=== PATIENT | female | born 1945 | race Caucasian/White ===

== ENCOUNTER 2016-07-18 09:57 | Emergency (ER) | payer MEDICARE, OTHER ==
--- NOTE | 2016-07-18 10:56 | EDM.PDOC ---
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 felt lightheaded did not fully pass out was able to guide herself into a chair is here for further evaluation at this time she feels back to herself denies any chest pain or shortness of breath - Related Data Allergies/ADRs: Allergies Allergy/AdvReac Type Severity Reaction Status Date / Time No Known Allergies Allergy Verified 07/18/16 10:12 Home Meds: Home Meds NK [No Known Home Meds] 07/18/16 [History] Past Medical History HEENT History: Reports: Impaired vision Genitourinary History: Reports: Other (see below) Other Genitourinary History: frequency at times CHARTER REPRESENTATIVE History: Reports: , Spontaneous - Infectious Disease History Infectious Disease History: Reports: Chicken pox Social & Family History - Tobacco Use Smoking Status *Q: Former Smoker Years of Tobacco use: 30 Packs/Tins Daily: 0.5 Used Tobacco, but Quit: Yes Month Tobacco Last Used: October Second Hand Smoke Exposure: No - Caffeine Use Caffeine Use: Reports: Coffee, Tea - Alcohol Use Days Per Week of Alcohol Use: 2 Number of Drinks Per Day: 1 Total Drinks Per Week: 2 - Recreational Drug Use Recreational Drug Use: No ED ROS GENERAL - Review of Systems Review Of Systems: See Below Constitutional: Reports: no symptoms Respiratory: Reports: no symptoms Cardiovascular: Reports: Syncope GI/Abdominal: Reports: No symptoms : Reports: no symptoms Neurological: Reports: syncope - Physical Exam Exam: See Below Text/Narrative:: General: female, not in any distress, alert and oriented x3 HEENT: head is atraumatic normocephalic, eyes pupils equal round reactive to light and accommodation sclera clear no conjunctivitis appreciated. Ears tympanic membranes clear and garcia landmarks and light reflex are present bilaterally canals are clear. Nose no septal deviation, nares are clear, no blood present. Mouth mucosa is moist and pink no erythema or exudate noted in soft palate, tongue is midline uvula is midline, dentures in place. Neck: Supple no thyromegaly no tracheal deviation. Nodes: Cervical nodes subclavicular nodes nontender no palpable lymphadenopathy noted. Lungs: clear to auscultation bilaterally with symmetrical respirations, no adventitious noise appreciated. CV: Regular rate and rhythm S1 and S2 appreciated no murmurs rubs or gallops noted. Abdomen: Soft, nontender, no palpable masses or organomegaly appreciated, no distention no guarding bowel sounds are present, . Neuro: Cranial nerves II through XII grossly intact Course - Vital Signs Last Recorded V/S: Last Vital Signs Temp 97.2 F 07/18/16 10:11 Pulse 76 07/18/16 11:01 Resp 14 07/18/16 11:01 BP 136/63 07/18/16 11:01 Pulse Ox 95 07/18/16 11:01 - Orders/Labs/Meds Orders: Active Orders 24 hr Category Date Time Status EKG Documentation Completion [RC] ASDIRECTED Care 07/18/16 10:51 Active EKG 12 Lead [EK] Stat Ther 07/18/16 10:51 Ordered Departure - Departure Time of Disposition: 11:46 Disposition: Home, Self-Care 01 Condition: good Clinical Impression: Near syncope Forms: ED Department Discharge Additional Instructions: Please followup with your primary care provider in 3-5 days if not better, please call return to the emergency department with worsening of symptoms. - My Orders Last 24 Hours: My Active Orders 07/18/16 10:51 EKG Documentation Completion [RC] ASDIRECTED EKG 12 Lead [EK] Stat - Assessment/Plan Last 24 Hours: My Active Orders 07/18/16 10:51 EKG Documentation Completion [RC] ASDIRECTED EKG 12 Lead [EK] Stat Plan: Assessment Acuity = acute Site and laterality = syncopal event Etiology = probably vasovagal from standing long period time Manifestations = none Location of injury = home Lab values = EKG demonstrates a sinus rhythm no ST-T elevation or depression Plan ED pulse ox during ambulation lowest was 94 range was usually between 96 and 100%, she feels back to her baseline plan is to discharge home followup with primary care as needed. Patient was in agreement with the plan all questions were answered, they were instructed to return to the emergency department or call for worsening symptoms. This note was dictated using [employer] voice recognition software please call with any questions.
[2016-07-18 11:22] VITALS: BP 136/63
== END 2016-07-18 12:11 | disposition home or self-care (01) ==
LOC: JP.ED 09:57
DX: R55 Syncope and collapse (principal); Z87.891 Personal history of nicotine dependence
CPT/HCPCS: 93005; 93010; 99283; 99284-25

== ENCOUNTER 2017-09-29 06:26 | Day surgery (SDC) | payer MEDICARE, OTHER ==
[2017-09-29] MEDS ORDERED: Sodium Chloride 0.9% 1,000 ML IV SCH (07:00)
[2017-09-29] MEDS ORDERED: fentaNYL 100 MCG/2 ML SDV ONE (07:25)
[2017-09-29] MEDS ORDERED: Propofol 200 MG/20 ML SDV ONE ×2 (07:25→08:10)
[2017-09-29 09:42] VITALS: BP 124/71
--- NOTE | 2017-10-02 10:44 | OR ---
DATE OF PROCEDURE: 09/29/2017 PROCEDURE: Colonoscopy. FINDINGS: 1. Descending colon polyp, approximately 1 cm, completely removed using hot snare. 2. Cecal polyp, approximately 1 cm, sessile type, mostly removed using hot snare. 3. Descending colon polyp, approximately 1 cm, completely removed using hot snare. 4. Rectal area of ulceration or malignancy (biopsied x8 using cold biopsy forceps). 5. Diverticulosis, mild. COMPLICATIONS: None. LEAD DATABASE DEVELOPER: None. PREOPERATIVE DIAGNOSIS: Positive Fecal immunochemical test. POSTOPERATIVE DIAGNOSIS: Positive Fecal immunochemical test. RISKS: Risks, benefits, alternatives, and limitations including, but not limited to infection, bleeding, and perforation were explained to the patient who wished to proceed. PROCEDURE IN DETAIL: The patient was placed in the left lateral decubitus position. The digital rectal exam was performed, and the lesion was not able to be palpated at that time. The scope was introduced and advanced atraumatically to the ileocecal valve. Within the cecum itself, the cecal polyp was described as sessile. This was biopsied using cold biopsy forceps. An elevation technique was then used by injecting Kristyn ink underneath this to maximize the snare excision. Approximately 95% of this lesion was removed. The scope was brought back through the descending colon, and the aforementioned polyps were identified and removed without abnormality. In the rectum itself, the patient had at the anal verge, an ulceration either consistent with an anal-type cancer or a healing/thrombosed hemorrhoid that has subsequently ulcerated. This was biopsied x8 using cold biopsy forceps in retroflexed and non-retroflexed fashion. The diverticulosis would be described as mild, mostly limited to sigmoid colon and without any evidence of abnormality. The patient tolerated the procedure well. Of note, the patient has a followup appointment with me to review the results. Claudio Das MD /[id number]
== END 2017-09-29 10:00 | disposition home or self-care (01) ==
LOC: JP.SDS 06:26
PROVIDERS: ATTEND Surgery
DX: C20 Malignant neoplasm of rectum (principal); D12.0 Benign neoplasm of cecum; D12.4 Benign neoplasm of descending colon; K57.30 Diverticulosis of large intestine without perforation or abscess without bleeding; K63.5 Polyp of colon; K21.9 Gastro-esophageal reflux disease without esophagitis; Z87.891 Personal history of nicotine dependence
CPT/HCPCS: 88305; 88341; 88342; J2704; J3010; J7040